=== PATIENT | male | born 1990 | race Caucasian/White ===

== ENCOUNTER 2017-12-31 16:16 | Emergency (ER) | payer OTHER ==
[~2017-12-31] VITALS: Wt 81.6 kg
[~2017-12-31 16:16] MED LIST: 'PARAFON FORTE500 M1 PO; CYCLOBENZAPRINE10 MG PO; MOTRIN800 MG PO; NAPROSYN500 MG PO; PEN-VEE K500 MG PO; ULTRAM50 MG PO
[2017-12-31] MEDS ORDERED: OMEPRAZOLE D/R20 MG PO (16:22)
== END 2017-12-31 17:21 | disposition other institution (70) ==
LOC: ED 16:16
DX: S66.921A Laceration of unspecified muscle, fascia and tendon at wrist and hand level, right hand, initial encounter (principal); R42 Dizziness and giddiness; Z79.899 Other long term (current) drug therapy; Z88.1 Allergy status to other antibiotic agents; Z88.6 Allergy status to analgesic agent; W45.8XXA Other foreign body or object entering through skin, initial encounter; Y93.89 Activity, other specified; Y92.89 Other specified places as the place of occurrence of the external cause; Y99.8 Other external cause status

== ENCOUNTER → 2018-03-02 | Outpatient (CLI) | payer OTHER ==
[~2018-03-02] MED LIST changes: +OMEPRAZOLE D/R20 MG PO
== END | disposition home or self-care (01) ==
LOC: RAD 13:25
DX: M25.531 Pain in right wrist (principal)

== ENCOUNTER → 2018-03-16 | Outpatient (CLI) | payer OTHER | END | disposition home or self-care (01) | LOC: MRI 12:58 | DX: R60.0 Localized edema (principal); S61.511D Laceration without foreign body of right wrist, subsequent encounter; X58.XXXD Exposure to other specified factors, subsequent encounter ==

== ENCOUNTER → 2018-07-18 | Outpatient (CLI) | payer OTHER | END | disposition home or self-care (01) | LOC: RAD 15:58 | DX: R05 Cough (principal); R09.89 Other specified symptoms and signs involving the circulatory and respiratory systems; R50.9 Fever, unspecified; R11.2 Nausea with vomiting, unspecified; R10.84 Generalized abdominal pain ==

== ENCOUNTER 2019-03-31 20:08 | Emergency (ER) | payer OTHER ==
[~2019-03-31] VITALS: Ht 193 cm; Wt 857.3 kg
[2019-03-31] MEDS ORDERED: IBUPROFEN600 MG PO (21:28)
[2019-03-31] MEDS ORDERED: ROBAXIN500 M1 PO (21:28)
== END 2019-03-31 22:08 | disposition home or self-care (01) ==
LOC: ED 20:08
DX: M43.6 Torticollis (principal); Z88.6 Allergy status to analgesic agent; Z88.1 Allergy status to other antibiotic agents; Z88.5 Allergy status to narcotic agent; Z79.899 Other long term (current) drug therapy